=== PATIENT | female | born 1975 | race Caucasian/White ===

== ENCOUNTER 2020-06-18 16:13 | Emergency (ER) | payer BC ==
[2020-06-18] MEDS ORDERED: BABY ASPIRIN 81 MG CHEW PO ONE (16:17)
--- NOTE | 2020-06-18 16:17 | ERPHSYRPT ---
- History of Present Illness Time Seen by Provider: 06/18/20 16:16 Historian: patient Exam Limitations: no limitations Physician History: This is a 45-year-old white female who presents with intermittent left-sided chest pain described as fluttering butterflies over the last 3 months. She is not short of breath. She is had no fever no cough. She has no abdominal pain no nausea vomiting or diarrhea. She has no known cardiac issues. Timing/Duration: week(s) (12) Quality: other (During butterflies) Location: other Chest Pain Radiation: no radiation (Anterior chest) Severity of Pain-Max: none Severity of Pain-Current: none Associated Symptoms: palpitations Prior Chest Pain/Cardiac Workup: no prior chest pain, no prior cardiac workup Nitro Today/Relief: no nitro taken today Aspirin Treatment Today: no aspirin today Allergies/Adverse Reactions: No Known Drug Allergies Allergy (Verified 06/18/20 16:28) Home Medications: No Reportable Medications [No Reported Medications] 06/18/20 [History] Travel Risk - International Travel Have you traveled outside of the country in past 3 weeks: No - Coronavirus Screening Are you exhibiting any of the following symptoms?: No Close contact with a COVID-19 positive Pt in past 14-21 Days: No - Review of Systems Constitutional: No Symptoms Eyes: No Symptoms Ears, Nose, & Throat: No Symptoms Respiratory: No Symptoms Cardiac: Other (Fluttering in left anterior chest) Abdominal/Gastrointestinal: No Symptoms Genitourinary Symptoms: No Symptoms Musculoskeletal: No Symptoms Skin: No Symptoms Neurological: No Symptoms Psychological: No Symptoms Endocrine: No Symptoms Hematologic/Lymphatic: No Symptoms Immunological/Allergic: No Symptoms All Other Systems: Reviewed and Negative - Past Medical History Pertinent Past Medical History: Yes Neurological History: No Pertinent History ENT History: No Pertinent History Cardiac History: No Pertinent History Respiratory History: No Pertinent History Endocrine Medical History: No Pertinent History Musculoskeletal History: No Pertinent History GI Medical History: No Pertinent History History: No Pertinent History Psycho-Social History: No Pertinent History Female Reproductive Disorders: No Pertinent History - Past Surgical History Past Surgical History: Yes Neuro Surgical History: No Pertinent History Cardiac: No Pertinent History Respiratory: No Pertinent History Gastrointestinal: No Pertinent History Genitourinary: No Pertinent History Musculoskeletal: No Pertinent History Female Surgical History: No Pertinent History - Social History Smoking Status: Never smoker - Nursing Vital Signs Nursing Vital Signs: Initial Vital Signs Pulse Rate 72 09/08/20 16:21 Respiratory Rate 20 06/18/20 16:21 Blood Pressure 117/72 06/18/20 16:21 O2 Sat by Pulse Oximetry 99 06/18/20 16:21 Pain Scale Pain Intensity 0 - Physical Exam General Appearance: no apparent distress, alert, anxiety Eye Exam: PERRL/EOMI, eyes nml inspection Ears, Nose, Throat Exam: normal ENT inspection, moist mucous membranes Neck Exam: normal inspection, non-tender, supple, full range of motion Respiratory Exam: normal breath sounds, chest tenderness (Described as butterflies fluttering), lungs clear, airway intact, No respiratory distress Cardiovascular Exam: regular rate/rhythm, normal heart sounds, normal peripheral pulses Gastrointestinal/Abdomen Exam: soft, normal bowel sounds, tenderness Pelvic Exam: not done Rectal Exam: not done Back Exam: normal inspection, normal range of motion, No CVA tenderness, No vertebral tenderness Extremity Exam: normal inspection, normal range of motion, pelvis stable Neurologic Exam: alert, oriented x 3, cooperative, nailer hand II-XII nml as tested, normal mood/affect, nml cerebellar function, nml station & gait, sensation nml Skin Exam: normal color, warm, dry Lymphatic Exam: No adenopathy SpO2 Interpretation: normal O2 Delivery: Room Air - Course Nursing assessment & vital signs reviewed: Yes EKG Interpreted by Me: RATE (61), Sinus Rhythm, NORMAL AXIS, NORMAL INTERVALS, NORMAL QRS Ordered Tests: Active Orders 24 hr Category Date Time Status EKG-ER Only STAT Care 06/18/20 16:17 Active IV Insertion STAT Care 06/18/20 16:17 Active Pulse Oximetry (ED) STAT Care 06/18/20 16:17 Active Re-Check Vital Signs STAT Care 06/18/20 16:17 Active CHEST 1 VIEW (PORTABLE) Stat Exams 06/18/20 16:17 Completed CBC W DIFF Stat Lab 06/18/20 16:25 Completed CMP Stat Lab 06/18/20 16:25 Received D-DIMER QUANTITATIVE Stat Lab 06/18/20 16:25 Completed NT PRO BNP Stat Lab 06/18/20 16:25 Received PROTIME WITH INR Stat Lab 06/18/20 16:25 Completed TROPONIN Q3H Lab 06/18/20 16:25 Completed TROPONIN Q3H Lab 06/18/20 19:30 Ordered TROPONIN Q3H Lab 06/18/20 22:30 Ordered TROPONIN Q3H Lab 06/19/20 01:30 Ordered TROPONIN Q3H Lab 06/19/20 04:30 Ordered Medication Summary Discontinued Medications Generic Name Dose Route Start Last Admin Trade Name Yasmany PRN Reason Stop Dose Admin Aspirin 324 mg 06/18/20 16:17 06/18/20 16:26 Baby Aspirin 81 Mg Chew PO 06/18/20 16:18 324 mg STAT ONE Administration Aspirin Confirm 06/18/20 16:26 Baby Aspirin 81 Mg Chew Administered 06/18/20 16:27 Dose 324 mg .ROUTE .STK-MED ONE Lab/Rad Data: Laboratory Result Diagrams 06/18/20 16:25 Laboratory Results 06/18/20 06/18/20 06/18/20 Range/Units 16:25 16:25 16:25 WBC 10.6 H (4.0-10.5) K/mm3 RBC 4.34 (4.1-5.4) M/mm3 Hgb 13.8 (12.0-16.0) gm/dl Hct 42.0 (35-47) % MCV 96.8 (78-100) fl MCH 31.8 (26-32) pg MCHC 32.9 (32-36) g/dl RDW 12.8 (11.5-14.0) % Plt Count 285 (150-450) K/mm3 MPV 9.1 (7.5-11.0) fl Gran % 63.1 (36.0-66.0) % Eos # (Auto) 0.23 (0-0.5) Absolute Lymphs (auto) 2.92 (1.0-4.6) Absolute Monos (auto) 0.72 (0.0-1.3) Lymphocytes % 27.5 (24.0-44.0) % Monocytes % 6.8 (0.0-12.0) % Eosinophils % 2.2 (0.00-5.0) % Basophils % 0.4 (0.0-0.4) % Absolute Granulocytes 6.71 (1.4-6.9) Basophils # 0.04 (0-0.4) PT 12.4 H (9.95-12.35) SECONDS INR 1.10 (0.8-3.0) D-Dimer 367 (215-500) ng/mL Troponin I < 0.012 (0.000-0.034) ng/mL - Progress Progress: re-examined Air Movement: good Progress Note: 06/18/20 17:37 Chest x-ray reveals no evidence of any acute pulmonary process Blood Culture(s) Obtained: No Antibiotics given: No Counseled pt/family regarding: lab results, diagnosis, need for follow-up, rad results - Departure Departure Disposition: Home Clinical Impression: Chest pain Condition: Stable Critical Care Time: No Referrals: ABUNDIO GREEN MD [Primary Care Provider] - Additional Instructions: Follow-up with your primary care physician for further management of your symptoms. Return to the emergency department if the symptoms worsen.
[2020-06-18] MEDS ORDERED: BABY ASPIRIN 81 MG CHEW ONE (16:26)
[2020-06-18 16:28] LABS: Absolute Neutrophil Ct (ANC) 6.71 (1.4-6.9); BASOPHIL % 0.4 % (0.0-0.4); Basophil (Absolute #) 0.04 (0-0.4); Eosinophil % 2.2 % (0.00-5.0); Eosinophil (Absolute #) 0.23 (0-0.5); Hemoglobin 13.8 gm/dl (12.0-16.0); Lymphocyte (Absolute #) 2.92 (1.0-4.6); Lymphocytes % 27.5 % (24.0-44.0); Mean Cell Volume 96.8 fl (78-100); Mean Corpuscular Hemoglobin 31.8 pg (26-32); Mean Corpuscular Hgb Concent. 32.9 g/dl (32-36); Mean Platelet Volume 9.1 fl (7.5-11.0); Monocyte (Absolute #) 0.72 (0.0-1.3); Monocytes % 6.8 % (0.0-12.0); Neutrophil % 63.1 % (36.0-66.0); Platelet Count 285 K/mm3 (150-450); Red Blood Count 4.34 M/mm3 (4.1-5.4); Red Cell Distribution Width 12.8 % (11.5-14.0); White Blood Count 10.6 K/mm3 (4.0-10.5)
[2020-06-18 16:39] LABS: INR 1.1 (0.8-3.0); PROTIME 12.4 SECONDS (9.95-12.35)
--- NOTE | 2020-06-18 16:41 | XRAY ---
Indication: Chest pain. Comparison: None Portable apical lordotic chest slightly underinflated and clear. Heart is not enlarged. Bony thorax intact. Impression: Nonacute underinflated chest.
[2020-06-18 17:04] VITALS: O2SAT 98
[2020-06-18 17:25] VITALS: BP 102/72
[2020-06-18 17:42] LABS: ALBUMIN 4.6 g/dL (3.5-5.0); ALKALINE PHOSPHATASE 89 U/L (38-126); ANION GAP 13.5 MEQ/L (5-15); BLOOD UREA NITROGEN 17 mg/dL (7-17); CHLORIDE 103 mmol/L (98-107); Calcium 9.6 mg/dL (8.4-10.2); Carbon Dioxide 24 mmol/L (22-30); EST GLOMERULAR FILTRATION RATE > 60.0 ML/MIN; Glucose 90 mg/dL (74-106); NT PRO BNP 47.7 pg/mL (0-450); Potassium 3.9 mmol/L (3.5-5.1); SGOT/AST 30 U/L (14-36); SGPT/ALT 22 U/L (0-35); SODIUM 136 mmol/L (137-145); Total Protein 7.9 g/dL (6.3-8.2)
[2020-06-18 17:45] VITALS: PULSE 58
== END 2020-06-18 17:53 | disposition home or self-care (01) ==
LOC: ED 16:13
DX: R07.9 Chest pain, unspecified (principal)
CPT/HCPCS: 36000; 36415; 71045; 80053; 83880; 84484; 85025; 85379; 85610; 93005; 94760; 99284; A9270-GY